=== PATIENT | male | born 1945 | race Asian ===

== ENCOUNTER 2017-09-12 08:28 | Outpatient (CLI) | payer OTHER ==
[~2017-09-12 08:28] MED LIST: COZAAR100 MG PO; NAPROXEN SOD550 MG OR; SIMV20TA2 PO; TRAM50TA PO
[2017-09-12 09:05] LABS: PLATELET COUNT 233 K/uL (142-355)
[2017-09-12 09:28] LABS: POTASSIUM 3.9 mmol/L (3.6-5.2); SODIUM 136 mmol/L (136-145)
== END 2017-09-12 22:20 | disposition home or self-care (01) ==
LOC: LABW 08:28
PROVIDERS: Internal Medicine
DX: I10 Essential (primary) hypertension (principal); Z12.5 Encounter for screening for malignant neoplasm of prostate; E78.00 Pure hypercholesterolemia, unspecified
CPT/HCPCS: 36415; 80053; 80061; 81000; 84153; 84443; 85027

== ENCOUNTER 2018-08-06 07:37 | Outpatient (CLI) | payer OTHER ==
[2018-08-06 07:56] LABS: PLATELET COUNT 246 K/uL (142-355)
[2018-08-06 08:18] LABS: POTASSIUM 4.1 mmol/L (3.6-5.2); SODIUM 140 mmol/L (136-145)
== END 2018-08-06 22:04 | disposition home or self-care (01) ==
LOC: LABW 07:37
PROVIDERS: Internal Medicine
DX: Z00.00 Encounter for general adult medical examination without abnormal findings (principal); Z12.5 Encounter for screening for malignant neoplasm of prostate; R97.20 Elevated prostate specific antigen [PSA]; R82.998 Other abnormal findings in urine
CPT/HCPCS: 36415; 80053; 80061; 81000; 84153; 84439; 84443; 85027

== ENCOUNTER 2018-10-15 10:32 | Day surgery (SDC) | payer OTHER | END 2018-10-15 14:30 | disposition home or self-care (01) | LOC: OR 10:32 | PROC: 0DBN8ZZ Excision of Sigmoid Colon, Via Natural or Artificial Opening Endoscopic (ICD-10-PCS; principal; 2018-10-15) | DX: K63.5 Polyp of colon (principal); D12.5 Benign neoplasm of sigmoid colon; K64.8 Other hemorrhoids; K57.30 Diverticulosis of large intestine without perforation or abscess without bleeding; Z12.11 Encounter for screening for malignant neoplasm of colon; Z86.010 Personal history of colon polyps | CPT/HCPCS: J2001; J2250; J2405; J2704 ==

== ENCOUNTER 2019-03-06 07:30 | Outpatient (CLI) | payer OTHER ==
[2019-03-06 07:56] LABS: PLATELET COUNT 195 K/uL (142-355)
[2019-03-06 08:39] LABS: POTASSIUM 3.6 mmol/L (3.6-5.2)
== END 2019-03-06 20:58 | disposition home or self-care (01) ==
LOC: LABW 07:30
PROVIDERS: Internal Medicine
DX: I10 Essential (primary) hypertension (principal)
CPT/HCPCS: 36415; 80053; 80061; 81000; 84439; 84443; 85027

== ENCOUNTER 2019-09-03 13:35 | Outpatient (CLI) | payer OTHER | END 2019-09-03 19:14 | disposition home or self-care (01) | LOC: RAD 13:35 | DX: M25.511 Pain in right shoulder (principal) ==

== ENCOUNTER 2019-11-25 08:20 | Outpatient (CLI) | payer OTHER | END 2019-11-25 22:21 | disposition home or self-care (01) | LOC: LABW 08:20 | DX: K64.0 First degree hemorrhoids (principal) | CPT/HCPCS: 82272 ==

== ENCOUNTER 2020-06-15 16:25 | Outpatient (CLI) | payer OTHER ==
[2020-06-15 17:25] LABS: PLATELET COUNT 219 K/uL (142-355)
[2020-06-15 17:54] LABS: POTASSIUM 5.8 mmol/L (3.6-5.2); SODIUM 140 mmol/L (136-145)
== END 2020-06-15 20:04 | disposition home or self-care (01) ==
LOC: LAB 16:25
PROVIDERS: ATTEND Internal Medicine
DX: Z00.00 Encounter for general adult medical examination without abnormal findings (principal); Z12.5 Encounter for screening for malignant neoplasm of prostate; Z79.899 Other long term (current) drug therapy
CPT/HCPCS: 80053; 80061; 81000; 84153; 84439; 84443; 85027

== ENCOUNTER 2020-12-14 11:00 | Outpatient (CLI) | payer OTHER | END 2020-12-14 20:55 | disposition home or self-care (01) | LOC: LABW 11:00 | PROVIDERS: ATTEND Internal Medicine Gastroenterology | DX: K64.0 First degree hemorrhoids (principal) | CPT/HCPCS: 82272 ==